=== PATIENT | female | born 1950 | race Caucasian/White ===

== ENCOUNTER 2017-08-12 08:38 | Day surgery (SDC) | payer MEDICARE, MEDICAID ==
[~2017-08-12] VITALS: Ht 170.3 cm; Wt 57.9 kg
[2017-08-12] VITALS (11 sets, daily range): BP systolic 104–148; BP diastolic 49–84; PULSE 58–68; TEMP 97.1–97.6
[~2017-08-12 08:38] MED LIST: EPA FISH OIL1000 MG PO; FOSAMAX 70MG TA70 MG PO; MIRAPEX0.25 MG PO; MULTIPLE VITAMI1 CAP PO; PREMARIN 0.60.625 M1 PO; ZANTAC 150MG T150 MG PO; ZOCOR 40MG40 MG PO
[2017-08-12 09:23] LABS: HEMATOCRIT 49.3 % (37.0-47.0); HEMOGLOBIN 15.9 g/dl (12.5-16.0); MEAN CELL VOLUME 93 fl (80.0-100.0); MEAN CORPUSCULAR HEMOGLOBIN 30 pg (27.0-31.0); MEAN CORPUSCULAR HGB CONC 32 g/dl (33.0-37.0); MEAN PLATELET VOLUME 9.5 fl (7.4-10.4); PLATELET COUNT 198 K/mm3 (130-400); RED BLOOD COUNT 5.33 M/mm3 (4.10-5.30); WHITE BLOOD COUNT 4.7 K/mm3 (4.8-10.8)
[2017-08-12] MEDS ORDERED: AMBIEN 10MG10 MG PO (09:23)
[2017-08-12] MEDS ORDERED: ZETIA 10MG TAB10 MG PO (09:24)
[2017-08-12] MEDS ORDERED: XYZAL5 MG PO (09:24)
[2017-08-12] MEDS ORDERED: BUMEX2 MG PO (09:25)
[2017-08-12] MEDS ORDERED: VENTOLIN0.09 MG IH (09:26)
[2017-08-12] MEDS ORDERED: MOBIC15 MG PO (09:26)
[2017-08-12] MEDS ORDERED: 00186-0372-20 IH (09:27)
[2017-08-12] MEDS ORDERED: RESTASIS 60VL OU (09:28)
[2017-08-12 09:31] LABS: INR 0.8 (0.8-3.0); PROTHROMBIN TIME 9.2 SECONDS (9.7-12.8)
[2017-08-12 09:38] LABS: CALCIUM 9.4 mg/dL (8.4-10.2); CREATININE, serum 0.64 mg/dL (0.52-1.25); POTASSIUM 4.2 mmol/L (3.4-5.0)
== END 2017-08-12 15:00 | disposition home or self-care (01) ==
LOC: COL.CAR 08:38
PROVIDERS: Internal Medicine Interventional Cardiology
DX: R07.89 Other chest pain (principal); R94.39 Abnormal result of other cardiovascular function study; J44.9 Chronic obstructive pulmonary disease, unspecified; M79.605 Pain in left leg; M79.604 Pain in right leg; Z82.3 Family history of stroke; Z83.3 Family history of diabetes mellitus; Z82.49 Family history of ischemic heart disease and other diseases of the circulatory system
CPT/HCPCS: C1760; C1894; J2250; J3010; Q9967

== ENCOUNTER 2019-04-22 11:00 | Emergency (ER) | payer MEDICARE, MEDICAID ==
[~2019-04-22] VITALS: Ht 170.2 cm; Wt 54.1 kg
[~2019-04-22 11:00] MED LIST changes: +00186-0372-20 IH; +AMBIEN 10MG10 MG PO; +BUMEX2 MG PO; +MOBIC15 MG PO; +RESTASIS 60VL OU; +VENTOLIN0.09 MG IH; +XYZAL5 MG PO; +ZETIA 10MG TAB10 MG PO
[2019-04-22 11:24] VITALS: BP 124/64; TEMP 98.4
[2019-04-22] MEDS ORDERED: DOXYCYCLINE HY100 MG PO (12:04)
[2019-04-22 12:13] VITALS: PULSE 83
== END 2019-04-22 12:15 | disposition home or self-care (01) ==
LOC: COL.ER 11:00
DX: L03.113 Cellulitis of right upper limb (principal); T81.30XA Disruption of wound, unspecified, initial encounter; F17.210 Nicotine dependence, cigarettes, uncomplicated; E78.5 Hyperlipidemia, unspecified; J44.9 Chronic obstructive pulmonary disease, unspecified

== ENCOUNTER 2019-06-19 21:49 | Emergency (ER) | payer MEDICARE, MEDICAID ==
[~2019-06-19] VITALS: Ht 162.6 cm; Wt 56.8 kg
[~2019-06-19 21:49] MED LIST changes: +DOXYCYCLINE HY100 MG PO
[2019-06-19] MEDS ORDERED: ARAVA10 MG (22:07)
[2019-06-19] MEDS ORDERED: PLAQUENIL 200M200 MG PO (22:07)
[2019-06-19] MEDS ORDERED: ANTIVERT 25MG25 MG PO (22:07)
[2019-06-19] MEDS ORDERED: DOXYCYCLINE 10100 MG PO (22:39)
[2019-06-19] MEDS ORDERED: NORCO 325 MG-51 TAB PO (22:39)
[2019-06-19 23:19] VITALS: BP 116/68; PULSE 84; TEMP 98.9
== END 2019-06-19 23:21 | disposition home or self-care (01) ==
LOC: COL.ER 21:49
DX: L08.9 Local infection of the skin and subcutaneous tissue, unspecified (principal); F17.210 Nicotine dependence, cigarettes, uncomplicated; J44.9 Chronic obstructive pulmonary disease, unspecified; Z90.89 Acquired absence of other organs

== ENCOUNTER → 2019-08-09 | Outpatient (CLI) | payer MEDICARE, MEDICAID ==
[~2019-08-09] VITALS: Ht 162.6 cm; Wt 55.8 kg
[~2019-08-09] MED LIST changes: +ANTIVERT 25MG25 MG PO; +ARAVA10 MG PO; +DOXYCYCLINE 10100 MG PO; +NORCO 325 MG-51 TAB PO; +PLAQUENIL 200M200 MG PO; +SIMPONIARIA IM
[2019-08-09 12:07] VITALS: BP 138/78; PULSE 88
[2019-08-09 13:58] VITALS: BP 124/59; PULSE 79
--- NOTE | 2019-08-09 14:25 | NUR ---
PT WAS TAKEN DOWN TO POV IN WHEELCHAIR.
== END ==
LOC: COL.RAD 11:45
DX: M47.814 Spondylosis without myelopathy or radiculopathy, thoracic region (principal); M40.204 Unspecified kyphosis, thoracic region; M43.16 Spondylolisthesis, lumbar region; M12.88 Other specific arthropathies, not elsewhere classified, other specified site; M54.42 Lumbago with sciatica, left side
CPT/HCPCS: J2704; J2765; J7120